=== PATIENT | male | born 1985 | race Caucasian/White ===

== ENCOUNTER → 2016-05-02 | Outpatient (CLI) | payer OTHER ==
[~2016-05-02] MED LIST: GADAVIST IV PRN; LISI5TAB3 PO; LRT5 PO; PENI-82 PO
--- NOTE | 2016-05-02 16:53 | DIAGNOSTIC IMAGING REPORT ---
Brain MRI WITH AND WITHOUT CONTRAST HISTORY: TONGUE/LIP NUMBNESS, LEFT FACIAL PALSY TECHNIQUE: Multiplanar multisequence MRI of the brain was performed both before and after the intravenous administration of contrast. COMPARISON STUDY: None. FINDINGS: There are no areas of restricted diffusion to suggest acute infarction. The midline structures are intact. The paranasal sinuses are clear. The mastoid air cells are clear. The ventricles and sulci are within normal limits for age. There is no mass, hematoma, midline shift. The major vascular flow-voids at the skull base are well maintained. Postcontrast sequences show no areas of abnormal enhancement. IMPRESSION: No acute intracranial abnormality. Electronically signed by: Yg Sheffield M.D. 05/02/2016 4:51 PM Dictated Date/Time: 05/02/2016 4:45 PM
== END ==
LOC: C.MRI 15:20
PROVIDERS: ATTEND Nurse Practitioner
DX: G51.0 Bell's palsy (principal); R20.0 Anesthesia of skin; R20.2 Paresthesia of skin